=== PATIENT | male | born 1945 | race African-American/Black ===

== ENCOUNTER 2017-05-17 22:10 | Emergency (ER) | payer MEDICARE, MEDICAID ==
[~2017-05-17] VITALS: Ht 180.3 cm; Wt 76.0 kg
[~2017-05-17 22:10] MED LIST: 1-ME1LIQ PO; CLON.1 PO; COLC1TAB15 PO; HYDR-2768 PO; LISI-363 PO; TAMS0.4C4 PO/GT
[2017-05-17 22:12] VITALS: BP 160/90; PULSE 100; RESP 12; TEMP 97.5; O2SAT 97
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
[2017-05-17] MEDS ORDERED: TRAM50 PO (23:29)
[2017-05-17] MEDS ORDERED: AUGM875T3 PO (23:29)
[2017-05-17] MEDS ORDERED: TETANUS/DIPHTHERIA TOXOID ADULT 0.5 ML VIAL IM ONE (23:30)
[2017-05-17] MEDS ORDERED: CIPROFLOXACIN 500 MG TAB PO ONE (23:30)
[2017-05-18] MEDS ORDERED: TAMS0.4C4 PO (00:20)
[2017-05-18] MEDS ORDERED: COLC1CAP3 PO (00:20)
[2017-05-18] MEDS ORDERED: HYDR25TA5 PO (00:20)
[2017-05-18] MEDS ORDERED: CLON0.1T PO (00:20)
== END 2017-05-18 00:26 | disposition home or self-care (01) ==
LOC: NEPD 22:10
DX: S01.511A Laceration without foreign body of lip, initial encounter (principal); I13.0 Hypertensive heart and chronic kidney disease with heart failure and stage 1 through stage 4 chronic kidney disease, or unspecified chronic kidney disease; I50.9 Heart failure, unspecified; N18.9 Chronic kidney disease, unspecified; I25.2 Old myocardial infarction; D64.9 Anemia, unspecified; Y04.1XXA Assault by human bite, initial encounter; Z86.73 Personal history of transient ischemic attack (TIA), and cerebral infarction without residual deficits; Z23 Encounter for immunization
CPT/HCPCS: 90471; 90714

== ENCOUNTER 2017-07-12 23:39 | Emergency (ER) | payer MEDICARE, MEDICAID ==
[~2017-07-12] VITALS: Ht 180.3 cm; Wt 74.0 kg
[~2017-07-12 23:39] MED LIST changes: -1-ME1LIQ PO; -CLON.1 PO; +CLON0.1T PO; +COLC1CAP3 PO; -COLC1TAB15 PO; -HYDR-2768 PO; +HYDR25TA5 PO; -LISI-363 PO; +TAMS0.4C4 PO; -TAMS0.4C4 PO/GT; +TRAM50 PO
[2017-07-12 23:40] VITALS: BP 156/79; PULSE 80; RESP 16; TEMP 98.6; O2SAT 99
[2017-07-12] MEDS ORDERED: LISI-515 PO (23:54)
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
[2017-07-13] MEDS ORDERED: METOCLOPRAMIDE HCL 10 MG/2 ML VIAL IVP ONE (00:30)
[2017-07-13] MEDS ORDERED: diphenhydrAMINE HCL 50 MG/ML VIAL IVP ONE (00:30)
[2017-07-13] MEDS ORDERED: ACETAMINOPHEN 325 MG TAB PO ONE (00:30)
[2017-07-13] MEDS ORDERED: SODIUM CHLORIDE 0.9% FLUSH 10 ML FLUSH IVF PRN (00:30)
[2017-07-13 00:52] VITALS: RESP 20; O2SAT 100
[2017-07-13 01:09] LABS: AUTOMATED NEUTROPHIL # 3.7 TH/MM3 (1.8-7.7); BASOPHIL % 0.5 % (0.0-2.0); EOSINOPHIL # 0.2 TH/MM3 (0-0.4); EOSINOPHIL % 3.3 % (0.0-4.0); HEMATOCRIT 32.2 % (39.0-51.0); HEMOGLOBIN 10.6 GM/DL (13.0-17.0); LYMPH % 15.5 % (9.0-44.0); LYMPHOCYTE # 0.8 TH/MM3 (1.0-4.8); MEAN CELL VOLUME 88.2 FL (80.0-100.0); MEAN CORPUSCULAR HEMOGLOBIN 28.9 PG (27.0-34.0); MEAN CORPUSCULAR HGB CONC 32.8 % (32.0-36.0); MEAN PLATELET VOLUME 7.6 FL (7.0-11.0); MONO % 8.8 % (0.0-8.0); MONOCYTE # 0.5 TH/MM3 (0-0.9); NEUT % 71.9 % (16.0-70.0); PLATELET COUNT 253 TH/MM3 (150-450); RED BLOOD COUNT 3.65 MIL/MM3 (4.50-5.90); RED CELL DISTRIBUTION WIDTH 14.6 % (11.6-17.2); WHITE BLOOD COUNT 5.2 TH/MM3 (4.0-11.0)
[2017-07-13 01:23] LABS: BICARBONATE 26.7 MEQ/L (21.0-32.0); CALCIUM 8.8 MG/DL (8.5-10.1); CREATININE 2.07 MG/DL (0.60-1.30)
--- NOTE | 2017-07-13 03:28 | RADRPT ---
EXAM DATE/TIME: 07/13/2017 03:00 [facility] COMPARISON: CT BRAIN W/O CONTRAST, May 03, 2015, 21:52. INDICATIONS : Cephalgia. RADIATION DOSE: 56.35 CTDIvol (mGy) MEDICAL HISTORY : Cerebrovascular disease. Hypertension. SURGICAL HISTORY : None. ENCOUNTER: Initial ACUITY: 1 day PAIN SCALE: 5/10 LOCATION: cranial TECHNIQUE: Multiple contiguous axial images were obtained of the head. Using automated exposure control and adj ustment of the mA and/or kV according to patient size, radiation dose was kept as low as reasonably a chievable to obtain optimal diagnostic quality images. DICOM format image data is available electro nically for review and comparison. FINDINGS: There is moderate fairly symmetric managed attenuation in deep white matter, likely microvascular isc hemic and grossly unchanged. There is no evidence of intracranial mass or hemorrhage. Nothing to sugg est acute infarction. There is mild polypoid mucosal disease in the left maxillary sinus. CONCLUSION: No acute intracranial findings. Avery Shaw MD on July 13, 2017 at 3:23 Board Certified Radiologist. This report was verified electronically.
== END 2017-07-13 04:07 | disposition home or self-care (01) ==
LOC: NEPD 23:39
DX: R51 Headache (principal); I11.0 Hypertensive heart disease with heart failure; I50.9 Heart failure, unspecified; I25.2 Old myocardial infarction; M10.9 Gout, unspecified
CPT/HCPCS: 70450; 80048; 85025; 96374; 96375; 99284; J1200; J2765